=== PATIENT | female | born 1995 | race Caucasian/White ===

== ENCOUNTER 2020-09-13 17:42 | Inpatient (IN) ==
[2020-09-13] MEDS ORDERED: Lactated Ringers 1000 ml BAG 1,000 ML IV SCH (20:00)
[2020-09-13] MEDS: Morphine 10 MG/ML VIAL (1 ml) IM ONE (23:25)
[2020-09-13] MEDS: Promethazine INJ(RESTRICTED) 25 MG/ML 1 ml VIAL IV PRN (23:26)
[2020-09-14 00:10] LABS: ABS Lymphocytes 1.5 10^3/ul (1.0-4.8); ABS Neutrophils 11.5 10^3/ul (1.5-7.7); Eosinophil % 0.2 %; Hematocrit 31 % (35-47); Hemoglobin 9.9 g/dL (12.0-16.0); Lymphocyte % 10.9 %; Mean Corpuscular Hemoglobin 24 pg (27-31); Mean Corpuscular Hgb Conc 32 g/dL (31-36); Mean Corpuscular Volume 76 fL (80-97); Mean Platelet Volume 9.3 fL (7.4-10.4); Nucleated Red Blood Cells % 0.1; Platelet Count 264 10^3/uL (150-450); Red Blood Count 4.08 10^6 /uL (3.70-4.87); Red Cell Distribution Width 17 % (10-15); White Blood Count 14.1 10^3/uL (3.5-10.8)
[2020-09-14] MEDS ORDERED: Lactated Ringers 1000 ml BAG 500 ML IV PRN (04:20)
[2020-09-14] MEDS ORDERED: Sodium Citrate/Citric Acid LIQ 15 ML UDC PO PRN (04:20)
[2020-09-14] MEDS ORDERED: Phenylephrine 40 mcg/mL 10mL (400mcg) SYRINGE IV PUSH PRN (04:20)
[2020-09-14 05:07] LABS: Urine Appearance Clear; Urine Bilirubin Negative (Negative); Urine Blood 2+ (Negative); Urine Color Yellow; Urine Glucose Negative (Negative); Urine Ketones Negative (Negative); Urine Nitrite Negative (Negative); Urine Protein Negative (Negative); Urine Specific Gravity 1.019 (1.002-1.030); Urine Urobilinogen Negative (Negative)
[2020-09-14 05:11] LABS: Urine Bacteria Absent (Absent); Urine Red Blood Cell 3+(>10/hpf) (Absent); Urine Squamous Epithelial Cell Present (Absent); Urine White Blood Cell 1+(6-10/hpf) (Absent)
[2020-09-14 05:28] LABS: Urine Benzodiazepine Screen None Detected (None Detect); Urine Cannabinoids Screen None Detected (None Detect); Urine Opiates Screen Presumptive Positive (None Detect)
[2020-09-14] MEDS: Oxytocin in LR 20 UNITS/1,000 ML BAG IVPB SCH (07:45)
[2020-09-14] MEDS: Lactated Ringers 1000 ml BAG 1,000 ML IV SCH (10:45)
[2020-09-14] MEDS: Lactated Ringers 1000 ml BAG 1,000 ML IV ONE (13:22)
[2020-09-14] MEDS ORDERED: Witch Hazel PAD JAR TOPICAL PRN (17:56)
[2020-09-14] MEDS ORDERED: Glycerin ADULT 2.4 gm SUPP PR PRN (17:56)
[2020-09-14] MEDS ORDERED: Dibucaine 1% OINT 28.35 GM TUBE PR PRN (17:56)
[2020-09-14] MEDS ORDERED: Oxytocin in LR 20 UNITS/1,000 ML BAG IVPB SCH (18:00)
[2020-09-14] MEDS ORDERED: Lactated Ringers 1000 ml BAG 1,000 ML IV SCH (18:00)
[2020-09-15 06:36] LABS: ABS Eosinophils 0.1 10^3/ul (0-0.6); ABS Lymphocytes 2.4 10^3/ul (1.0-4.8); ABS Monocytes 1.2 10^3/ul (0-0.8); ABS Neutrophils 11.8 10^3/ul (1.5-7.7); Eosinophil % 0.5 %; Hematocrit 22 % (35-47); Hemoglobin 7.2 g/dL (12.0-16.0); Lymphocyte % 15.2 %; Mean Corpuscular Hemoglobin 25 pg (27-31); Mean Corpuscular Hgb Conc 32 g/dL (31-36); Mean Corpuscular Volume 77 fL (80-97); Mean Platelet Volume 8.5 fL (7.4-10.4); Platelet Count 181 10^3/uL (150-450); Red Cell Distribution Width 17 % (10-15); White Blood Count 15.5 10^3/uL (3.5-10.8)
[2020-09-15] MEDS: OBEPIDURAL 250 ML EPIDURAL SCH (07:26)
[2020-09-15] MEDS: Lactated Ringers 1000 ml BAG 1,000 ML IV ONE (07:26)
[2020-09-15] MEDS: Buffered Lidocaine 1% SYRIN 1 ml INTRADERM ONE (07:26)
[2020-09-15] MEDS: Morphine 10 MG/ML VIAL (1 ml) IV ONE (07:27)
[2020-09-15] MEDS: OBEPIDURAL 250 ML EPIDURAL ONE (07:27)
[2020-09-15] MEDS: Promethazine INJ(RESTRICTED) 25 MG/ML 1 ml VIAL IM ONE (07:27)
[2020-09-15] MEDS: Iron Sucrose 200 MG in NS 0.9% 100 ml BAG 100 ML IVPB ONE (22:13)
[2020-09-16 06:40] LABS: Hematocrit 21 % (35-47); Hemoglobin 6.7 g/dL (12.0-16.0)
[2020-09-16 19:44] LABS: ABS Eosinophils 0.1 10^3/ul (0-0.6); ABS Lymphocytes 2.1 10^3/ul (1.0-4.8); ABS Monocytes 0.8 10^3/ul (0-0.8); ABS Neutrophils 10.1 10^3/ul (1.5-7.7); Eosinophil % 0.9 %; Hematocrit 29 % (35-47); Hemoglobin 9.7 g/dL (12.0-16.0); Lymphocyte % 16.1 %; Mean Corpuscular Hemoglobin 26 pg (27-31); Mean Corpuscular Hgb Conc 33 g/dL (31-36); Mean Corpuscular Volume 80 fL (80-97); Mean Platelet Volume 8.4 fL (7.4-10.4); Nucleated Red Blood Cells % 0.1; Platelet Count 220 10^3/uL (150-450); Red Blood Count 3.68 10^6 /uL (3.70-4.87); Red Cell Distribution Width 18 % (10-15); White Blood Count 13.2 10^3/uL (3.5-10.8)
[2020-09-16 20:16] VITALS: BP 135/71
== END 2020-09-16 20:35 | disposition home or self-care (01) ==
LOC: MCHOBOUT 17:42 → MCHOB 19:13
PROVIDERS: ADMIT Midwife; ATTEND Midwife